=== PATIENT | female | born 1970 | race Two or more races ===

== ENCOUNTER 2025-05-17 22:23 | Emergency (ER) | payer OTHER ==
[~2025-05-17] VITALS: Ht 157.5 cm; Wt 72.6 kg
[2025-05-17 22:41] VITALS: BP 110/72; O2SAT 97
[2025-05-18] MEDS ORDERED: ORPHENADRINE CITRATE 30 MG/ML AMPUL IM STA (00:37)
[2025-05-18] MEDS ORDERED: KETOROLAC TROMETHAMINE 60 MG VIAL IM STA (00:37)
[2025-05-18] MEDS ORDERED: LACTULOSE 20 G/30 ML BLIST.PACK PO STA (00:38)
[2025-05-18] MEDS ORDERED: LACTULOSE 20 G/30 ML BLIST.PACK ONE (00:43)
[2025-05-18] MEDS ORDERED: ORPHENADRINE CITRATE 30 MG/ML AMPUL ONE (00:44)
[2025-05-18] MEDS ORDERED: KETOROLAC TROMETHAMINE 60 MG VIAL IM ONE (00:44)
[2025-05-18 01:37] LABS: URINE APPEARANCE Cloudy; URINE BILIRRUBIN Negative (NEGATIVE); URINE BLOOD Moderate; URINE COLOR Yellow; URINE GLUCOSE Negative (NEGATIVE); URINE KETONE 15 (NEGATIVE); URINE LEUKOCYTE Small; URINE NITRATE Positive; URINE PROTEIN 30 (NEGATIVE); URINE UROBILINOGEN 1.0 E.U./dl
[2025-05-18 01:41] LABS: URINE EPITHELIAL CELLS 61.9 uL (0.0-38.8); URINE RBC 87.9 uL (0.0-20.8); URINE WBC 146.2 uL (0.0-23.2)
[2025-05-18 02:28] LABS: URINE BACTERIA > 9821.5 uL (0.0-1933); URINE CAST 0.56 uL (0.0-1.40)
[2025-05-18] MEDS ORDERED: CEFTRIAXONE SODIUM 1,000 MG VIAL IM STA (04:25)
[2025-05-18] MEDS ORDERED: POLY119PG PO (04:32)
[2025-05-18] MEDS ORDERED: CEPHALEXIN500 MG PO (04:32)
[2025-05-18] MEDS ORDERED: LIDOCAINE HCL 1% 10ML VIAL ONE (04:36)
[2025-05-18] MEDS ORDERED: CEFTRIAXONE SODIUM 1,000 MG VIAL ONE (04:36)
== END 2025-05-18 04:47 ==
LOC: ER
PROVIDERS: General Practice
DX: N39.0 Urinary tract infection, site not specified (principal); K59.00 Constipation, unspecified